=== PATIENT | male | born 1950 | race Caucasian/White ===

== ENCOUNTER 2021-01-11 12:02 | Inpatient (IN) | payer MEDICARE ==
[~2021-01-11] VITALS: Ht 170.2 cm; Wt 79.8 kg
[~2021-01-11 12:02] MED LIST: OMEPRAZOLE20 MG PO; SIMVASTATIN40 MG PO
[2021-01-11] MEDS ORDERED: AMLODIPINE BESYL5 MG PO (12:09)
[2021-01-11] MEDS ORDERED: CEFEPIME HCL 1GM 1 GM in SODIUM CHLORIDE 0.9% 50ML 50 ML IV STA (12:13)
[2021-01-11] MEDS ORDERED: SODIUM CHLORIDE 0.9% 1000ML 1,000 ML IV STA ×2 (12:13)
[2021-01-11] MEDS ORDERED: ACETAMINOPHEN 325 MG TAB ONE (12:34)
[2021-01-11 12:41] LABS: BASOPHILS % 0.2 % (0.0-1.0); EOSINOPHILS % 0.1 % (0.0-6.0); HEMATOCRIT 26.6 % (38.2-49.6); HEMOGLOBIN 8.6 g/dL (14.0-18.0); LYMPHOCYTES # (AUTO) 1.2 (1.0-3.2); LYMPHOCYTES % 7.5 % (18.0-39.1); MEAN CORPUSCULAR HGB CONC 32.3 g/dL (31-35); MEAN CORPUSCULAR VOLUME 92.7 fL (81-99); MONOCYTES # (AUTO) 0.8 (0.2-0.8); MONOCYTES % 5.3 % (4.4-11.3); NEUTROPHILS # (AUTO) 13.1 (2.1-6.9); NEUTROPHILS % 86.2 % (38.7-80.0); PLATELET COUNT 488 x10e3/uL (140-360); RED BLOOD COUNT 2.87 x10e6/uL (4.3-5.7)
[2021-01-11 13:04] LABS: ALBUMIN 2.3 g/dL (3.5-5.0); ALBUMIN/GLOBULIN RATIO 0.4 (0.8-2.0); ANION GAP 17.8 mmol/L (8-16); CALCIUM 8.5 mg/dL (8.4-10.2); CREATININE, SERUM 4.75 mg/dL (0.72-1.25)
[2021-01-11 13:10] LABS: CREATINE KINASE MB 6.9 ng/mL (0-5.0)
[2021-01-11 13:36] LABS: POTASSIUM 2.8 mmol/L (3.5-5.1)
[2021-01-11] MEDS ORDERED: POTASSIUM CHLORIDE 20MEQ/100ML 100 ML IV ONE (13:45)
[2021-01-11] MEDS ORDERED: POTASSIUM CHLORIDE 10MEQ/100ML 200 ML INJ ONE (14:00)
[2021-01-11 14:16] LABS: CLARITY,URINE CLEAR (CLEAR); COLOR,URINE YELLOW (YELLOW)
[2021-01-11 14:17] LABS: KETONES,URINE NEGATIVE (NEGATIVE); LEUKOCYTE ESTERASE ,URINE 2+ (NEGATIVE); NITRITE,URINE NEGATIVE (NEGATIVE); PROTEIN,URINE DIPSTICK 1+ (NEGATIVE); URINE UROBILINOGEN 0.2 mg/dL (0.2 - 1)
[2021-01-11 14:35] LABS: BACTERIA,URINE RARE /HPF; EPITHELIAL CELLS,URINE FEW /LPF; RBC,URINE 21-50 /HPF (0-5); WBC,URINE (MAN) 21-50 /HPF (0-5)
[2021-01-11] MEDS ORDERED: SODIUM CHLORIDE 0.9% 500ML 500 ML IV STA (15:10)
[2021-01-11] MEDS ORDERED: SODIUM CHLORIDE 0.9% 500ML 500 ML ONE (15:21)
[2021-01-11] MEDS: POTASSIUM CHLORIDE 10MEQ EA PO SCH (15:21)
[2021-01-11] MEDS ORDERED: AZOR 10-40 MG1 EACH PO (17:57)
[2021-01-11] MEDS ORDERED: ASPIRIN81 MG PO (17:57)
[2021-01-11 20:00] VITALS: BP_SYST 102; BP_SYST 122; BP_DIAS 73; BP_DIAS 74
[2021-01-11 20:43] VITALS: BP 122/73
[2021-01-12] VITALS (7 sets, daily range): BP systolic 109–126; BP diastolic 58–76
[2021-01-12] MEDS ORDERED: CEFEPIME HCL 1GM 1 GM in SODIUM CHLORIDE 0.9% 50ML 50 ML IV SCH (01:15)
[2021-01-12] MEDS ORDERED: LIDOCAINE 4% PATCH TP PRN (01:15)
[2021-01-12] MEDS ORDERED: DOCUSATE SODIUM 100 MG CAP PO PRN (01:15)
[2021-01-12] MEDS ORDERED: POLYETHYLENE GLYCOL 3350 17 GM PACK PO PRN (01:15)
[2021-01-12] MEDS ORDERED: MELATONIN 5 MG TABLET PO PRN (01:15)
[2021-01-12] MEDS ORDERED: DIPHENHYDRAMINE HCL 25 MG CAP PO PRN (01:15)
[2021-01-12] MEDS ORDERED: SIMETHICONE 80 MG CHEW PO PRN (01:15)
[2021-01-12] MEDS ORDERED: BENZONATATE 100 MG CAP PO PRN (01:15)
[2021-01-12] MEDS: SODIUM CHLORIDE 0.9% 1000ML 1,000 ML IV SCH ×2 (01:31→16:21)
[2021-01-12] MEDS: HYDROCODONE/APAP 5MG-325MG TAB PO PRN ×2 (01:32→14:25)
[2021-01-12] MEDS: CEFEPIME HCL 1GM 1 GM in SODIUM CHLORIDE 0.9% 50ML 50 ML IV SCH ×2 (02:00→14:25)
[2021-01-12] MEDS: PANTOPRAZOLE SOD 40 MG TABEC PO SCH (08:17)
[2021-01-12] MEDS: MORPHINE SULFATE INJ 2 MG/ML SYR IV PRN (08:17)
[2021-01-12] MEDS: POTASSIUM CHLORIDE 20 MEQ TAB CR PO PRN ×2 (08:18→14:25)
[2021-01-12] MEDS: ONDANSETRON HCL INJ 2MG/ML 2ML 2 MG/ML VIAL IV PRN (08:18)
[2021-01-12 14:05] LABS: ALBUMIN 1.8 g/dL (3.5-5.0); ALBUMIN/GLOBULIN RATIO 0.4 (0.8-2.0); ANION GAP 11.9 mmol/L (8-16); CALCIUM 7.7 mg/dL (8.4-10.2); CREATININE, SERUM 4.83 mg/dL (0.72-1.25)
[2021-01-12 14:10] LABS: POTASSIUM 2.9 mmol/L (3.5-5.1)
[2021-01-12] MEDS: ENOXAPARIN SOD INJ 40 MG/0.4 ML SYR SC SCH (16:23)
[2021-01-13] VITALS (7 sets, daily range): BP systolic 128–141; BP diastolic 72–85
[2021-01-13] MEDS: CEFEPIME HCL 1GM 1 GM in SODIUM CHLORIDE 0.9% 50ML 50 ML IV SCH ×2 (01:07→13:35)
[2021-01-13] MEDS: SODIUM CHLORIDE 0.9% 1000ML 1,000 ML IV SCH ×2 (01:07→16:00)
[2021-01-13 07:06] LABS: BASOPHILS % 0.2 % (0.0-1.0); EOSINOPHILS # (AUTO) 0.1 (0.0-0.4); EOSINOPHILS % 0.9 % (0.0-6.0); HEMATOCRIT 24.2 % (38.2-49.6); HEMOGLOBIN 7.5 g/dL (14.0-18.0); LYMPHOCYTES # (AUTO) 1.4 (1.0-3.2); MEAN CORPUSCULAR VOLUME 96.8 fL (81-99); MONOCYTES # (AUTO) 0.8 (0.2-0.8); MONOCYTES % 8.6 % (4.4-11.3); NEUTROPHILS # (AUTO) 6.6 (2.1-6.9); NEUTROPHILS % 73.9 % (38.7-80.0); PLATELET COUNT 397 x10e3/uL (140-360); RED CELL DISTRIBUTION WIDTH 15.1 % (11.7-14.4)
[2021-01-13] MEDS: PANTOPRAZOLE SOD 40 MG TABEC PO SCH (07:12)
[2021-01-13 07:27] LABS: ALBUMIN 1.7 g/dL (3.5-5.0); ALBUMIN/GLOBULIN RATIO 0.4 (0.8-2.0); ANION GAP 14.2 mmol/L (8-16); CALCIUM 7.9 mg/dL (8.4-10.2); CREATININE, SERUM 4.48 mg/dL (0.72-1.25); POTASSIUM 3.2 mmol/L (3.5-5.1)
[2021-01-13] MEDS: POTASSIUM CHLORIDE 10MEQ EA PO SCH (08:03)
[2021-01-13] MEDS: ENOXAPARIN SOD INJ 40 MG/0.4 ML SYR SC SCH (16:39)
[2021-01-14] VITALS (9 sets, daily range): BP systolic 136–166; BP diastolic 73–90
[2021-01-14] MEDS: CEFEPIME HCL 1GM 1 GM in SODIUM CHLORIDE 0.9% 50ML 50 ML IV SCH (00:40)
[2021-01-14] MEDS ORDERED: POTASSIUM CHLORIDE 10MEQ EA PO SCH (09:00)
[2021-01-14] MEDS: PANTOPRAZOLE SOD 40 MG TABEC PO SCH (09:00)
[2021-01-14 10:36] LABS: BASOPHILS % 0.3 % (0.0-1.0); EOSINOPHILS # (AUTO) 0.1 (0.0-0.4); EOSINOPHILS % 1.5 % (0.0-6.0); HEMATOCRIT 25.4 % (38.2-49.6); LYMPHOCYTES # (AUTO) 1.6 (1.0-3.2); LYMPHOCYTES % 16.8 % (18.0-39.1); MEAN CORPUSCULAR HGB CONC 31.5 g/dL (31-35); MEAN CORPUSCULAR VOLUME 95.1 fL (81-99); MONOCYTES # (AUTO) 0.6 (0.2-0.8); MONOCYTES % 6.3 % (4.4-11.3); NEUTROPHILS # (AUTO) 6.9 (2.1-6.9); NEUTROPHILS % 74.7 % (38.7-80.0); PLATELET COUNT 350 x10e3/uL (140-360); RED BLOOD COUNT 2.67 x10e6/uL (4.3-5.7); RED CELL DISTRIBUTION WIDTH 15.4 % (11.7-14.4)
[2021-01-14 11:00] LABS: ANION GAP 12.3 mmol/L (8-16); CALCIUM 7.8 mg/dL (8.4-10.2); CREATININE, SERUM 4.68 mg/dL (0.72-1.25); MAGNESIUM 1.6 MG/DL (1.3-2.1); POTASSIUM 4.3 mmol/L (3.5-5.1)
[2021-01-14] MEDS: CEFTRIAXONE SOD 1 GM in SODIUM CHLORIDE 0.9% 50ML 50 ML IV SCH (11:11)
[2021-01-14] MEDS ORDERED: CLONIDINE HCL 0.1 MG TAB PO PRN (20:00)
[2021-01-14] MEDS: HEPARIN SOD (PORCINE) 5,000 UNIT/ML VIAL SC SCH (21:52)
[2021-01-14] MEDS: SODIUM CHLORIDE 0.9% 1000ML 1,000 ML IV SCH (21:53)
[2021-01-14] MEDS: HYDROCODONE/APAP 5MG-325MG TAB PO PRN (23:55)
[2021-01-15] VITALS (8 sets, daily range): BP systolic 129–165; BP diastolic 75–93
[2021-01-15] MEDS: ONDANSETRON HCL INJ 2MG/ML 2ML 2 MG/ML VIAL IV PRN (04:24)
[2021-01-15] MEDS: MORPHINE SULFATE INJ 2 MG/ML SYR IV PRN (04:24)
[2021-01-15 05:52] LABS: ANION GAP 13.3 mmol/L (8-16); CALCIUM 8.2 mg/dL (8.4-10.2); CREATININE, SERUM 4.55 mg/dL (0.72-1.25); POTASSIUM 4.3 mmol/L (3.5-5.1)
[2021-01-15] MEDS ORDERED: LORAZEPAM 0.5 MG TAB PO ONE (06:40)
[2021-01-15] MEDS: SODIUM CHLORIDE 0.9% 1000ML 1,000 ML IV SCH (08:23)
[2021-01-15] MEDS: HEPARIN SOD (PORCINE) 5,000 UNIT/ML VIAL SC SCH ×2 (08:23→22:01)
[2021-01-15] MEDS: HYDROCODONE/APAP 5MG-325MG TAB PO PRN (08:23)
[2021-01-15] MEDS: CEFTRIAXONE SOD 1 GM in SODIUM CHLORIDE 0.9% 50ML 50 ML IV SCH (10:59)
[2021-01-15] MEDS: LACTATED RINGER'S 1,000 ML INJ SCH (13:06)
[2021-01-15] MEDS: LORAZEPAM 0.5 MG TAB PO PRN (22:36)
[2021-01-15] MEDS: TAMSULOSIN HCL 0.4 MG CAP PO SCH (22:36)
[2021-01-16] VITALS (9 sets, daily range): BP systolic 106–152; BP diastolic 66–120
[2021-01-16] MEDS: LACTATED RINGER'S 1,000 ML INJ SCH ×2 (02:00→13:56)
[2021-01-16] MEDS: LORAZEPAM 0.5 MG TAB PO PRN ×2 (04:40→08:23)
[2021-01-16 05:52] LABS: ANION GAP 14.5 mmol/L (8-16); CALCIUM 8.6 mg/dL (8.4-10.2); CREATININE, SERUM 3.95 mg/dL (0.72-1.25); POTASSIUM 4.5 mmol/L (3.5-5.1)
[2021-01-16] MEDS: HEPARIN SOD (PORCINE) 5,000 UNIT/ML VIAL SC SCH ×2 (09:00→21:06)
[2021-01-16] MEDS: CEFTRIAXONE SOD 1 GM in SODIUM CHLORIDE 0.9% 50ML 50 ML IV SCH (11:00)
[2021-01-16] MEDS: ACETAMINOPHEN 325 MG TAB PO PRN (20:41)
[2021-01-16] MEDS: TAMSULOSIN HCL 0.4 MG CAP PO SCH (20:41)
[2021-01-17] VITALS (9 sets, daily range): BP systolic 134–163; BP diastolic 75–88
[2021-01-17] MEDS: ONDANSETRON HCL INJ 2MG/ML 2ML 2 MG/ML VIAL IV PRN (02:06)
[2021-01-17 05:06] LABS: BASOPHILS % 0.4 % (0.0-1.0); EOSINOPHILS # (AUTO) 0.2 (0.0-0.4); EOSINOPHILS % 2.4 % (0.0-6.0); HEMATOCRIT 25.8 % (38.2-49.6); LYMPHOCYTES # (AUTO) 1.3 (1.0-3.2); LYMPHOCYTES % 16.6 % (18.0-39.1); MEAN CORPUSCULAR HEMOGLOBIN 30.4 pg (28-32); MEAN CORPUSCULAR VOLUME 98.1 fL (81-99); MONOCYTES # (AUTO) 0.7 (0.2-0.8); MONOCYTES % 8.4 % (4.4-11.3); NEUTROPHILS # (AUTO) 5.8 (2.1-6.9); NEUTROPHILS % 71.6 % (38.7-80.0); PLATELET COUNT 425 x10e3/uL (140-360); RED BLOOD COUNT 2.63 x10e6/uL (4.3-5.7); RED CELL DISTRIBUTION WIDTH 15.8 % (11.7-14.4)
[2021-01-17 05:18] LABS: ANION GAP 11.7 mmol/L (8-16); CALCIUM 8.5 mg/dL (8.4-10.2); CREATININE, SERUM 3.31 mg/dL (0.72-1.25); POTASSIUM 3.7 mmol/L (3.5-5.1)
[2021-01-17] MEDS: LACTATED RINGER'S 1,000 ML INJ SCH ×2 (05:30→11:03)
[2021-01-17 05:49] LABS: MAGNESIUM 1.6 MG/DL (1.3-2.1)
[2021-01-17 06:09] LABS: THYROID STIMULATING HORMONE 1.098 uIU/mL (0.350-4.940)
[2021-01-17] MEDS: HEPARIN SOD (PORCINE) 5,000 UNIT/ML VIAL SC SCH ×2 (09:00→21:24)
[2021-01-17] MEDS: CEFTRIAXONE SOD 1 GM in SODIUM CHLORIDE 0.9% 50ML 50 ML IV SCH (11:00)
[2021-01-17] MEDS ORDERED: MAGNESIUM SULF 1GRAM/DEXTROSE 100 ML IV ONE (11:15)
[2021-01-17] MEDS: ACETAMINOPHEN 325 MG TAB PO PRN ×2 (14:13→20:12)
[2021-01-17] MEDS: TAMSULOSIN HCL 0.4 MG CAP PO SCH (20:12)
[2021-01-18] MEDS: LACTATED RINGER'S 1,000 ML INJ SCH ×2 (02:47→20:53)
[2021-01-18 03:51] VITALS: BP 113/66
[2021-01-18 05:28] LABS: ANION GAP 13.8 mmol/L (8-16); CALCIUM 8.7 mg/dL (8.4-10.2); CREATININE, SERUM 2.86 mg/dL (0.72-1.25); POTASSIUM 3.8 mmol/L (3.5-5.1)
[2021-01-18 06:28] LABS: FERRITIN 680.47 ng/mL (21.81-274.66)
[2021-01-18 08:05] VITALS: BP 113/66
[2021-01-18 08:52] VITALS: BP 127/60
[2021-01-18] MEDS: HEPARIN SOD (PORCINE) 5,000 UNIT/ML VIAL SC SCH ×2 (09:00→21:00)
[2021-01-18] MEDS: CEFTRIAXONE SOD 1 GM in SODIUM CHLORIDE 0.9% 50ML 50 ML IV SCH (10:15)
[2021-01-18] MEDS ORDERED: LACTULOSE SYRUP 20 GM/30 ML UDC PO ONE (11:15)
[2021-01-18 16:38] VITALS: BP 162/61
[2021-01-18] MEDS ORDERED: PROPOFOL IV EMULSION 10 MG/ML 20 ML VIAL ONE (17:38)
[2021-01-18 20:00] VITALS: BP 142/85
[2021-01-18] MEDS: TAMSULOSIN HCL 0.4 MG CAP PO SCH (20:53)
[2021-01-18 21:49] VITALS: BP 142/85
[2021-01-19] VITALS (8 sets, daily range): BP systolic 148–169; BP diastolic 74–90
[2021-01-19 05:28] LABS: ANION GAP 13.9 mmol/L (8-16); CALCIUM 8.6 mg/dL (8.4-10.2); CREATININE, SERUM 2.52 mg/dL (0.72-1.25); POTASSIUM 3.9 mmol/L (3.5-5.1)
[2021-01-19] MEDS: HEPARIN SOD (PORCINE) 5,000 UNIT/ML VIAL SC SCH ×2 (09:16→21:00)
[2021-01-19] MEDS: CEFTRIAXONE SOD 1 GM in SODIUM CHLORIDE 0.9% 50ML 50 ML IV SCH (10:04)
[2021-01-19] MEDS: CARVEDILOL 3.125 MG TAB PO SCH ×2 (13:40→18:40)
[2021-01-19] MEDS: CALCIUM CARBONATE 500 MG CHEWABLE TABS PO PRN (16:08)
[2021-01-19] MEDS: AMLODIPINE BESYLATE 5 MG TAB PO SCH (19:15)
[2021-01-19] MEDS: TAMSULOSIN HCL 0.4 MG CAP PO SCH (23:30)
[2021-01-19] MEDS: LACTATED RINGER'S 1,000 ML INJ SCH (23:30)
[2021-01-20] VITALS (8 sets, daily range): BP systolic 121–168; BP diastolic 75–92
[2021-01-20] MEDS: CALCIUM CARBONATE 500 MG CHEWABLE TABS PO PRN (00:08)
[2021-01-20 06:35] LABS: ANION GAP 11.9 mmol/L (8-16); CALCIUM 8.3 mg/dL (8.4-10.2); CREATININE, SERUM 2.26 mg/dL (0.72-1.25); POTASSIUM 3.9 mmol/L (3.5-5.1)
[2021-01-20] MEDS: HEPARIN SOD (PORCINE) 5,000 UNIT/ML VIAL SC SCH ×2 (08:35→21:38)
[2021-01-20] MEDS: AMLODIPINE BESYLATE 5 MG TAB PO SCH (09:00)
[2021-01-20] MEDS: CARVEDILOL 3.125 MG TAB PO SCH ×2 (09:00→16:47)
[2021-01-20] MEDS: CEFTRIAXONE SOD 1 GM in SODIUM CHLORIDE 0.9% 50ML 50 ML IV SCH (09:43)
[2021-01-20] MEDS: TAMSULOSIN HCL 0.4 MG CAP PO SCH (21:37)
[2021-01-21] VITALS: BP 141/86
[2021-01-21 04:29] VITALS: BP 136/94
[2021-01-21 06:00] LABS: ANION GAP 14.9 mmol/L (8-16); CALCIUM 8.6 mg/dL (8.4-10.2); CREATININE, SERUM 2.18 mg/dL (0.72-1.25); POTASSIUM 3.9 mmol/L (3.5-5.1)
[2021-01-21] MEDS: LACTATED RINGER'S 1,000 ML INJ SCH (06:26)
[2021-01-21 08:00] VITALS: BP 144/81
[2021-01-21] MEDS: AMLODIPINE BESYLATE 5 MG TAB PO SCH (09:22)
[2021-01-21] MEDS: CARVEDILOL 3.125 MG TAB PO SCH (09:22)
[2021-01-21] MEDS: CEFTRIAXONE SOD 1 GM in SODIUM CHLORIDE 0.9% 50ML 50 ML IV SCH (09:23)
[2021-01-21] MEDS: HEPARIN SOD (PORCINE) 5,000 UNIT/ML VIAL SC SCH (09:29)
[2021-01-21 09:46] VITALS: BP 144/81
[2021-01-21 12:00] VITALS: BP 108/72
[2021-01-21 16:00] VITALS: BP 126/73
== END 2021-01-21 16:22 | DRG 871 ==
LOC: ER 12:11 → ERHOLD 13:58 → ER 17:32 → MED/SURG2 18:43
PROVIDERS: ADMIT Internal Medicine; ATTEND Internal Medicine
PROC: 0DB78ZX Excision of Stomach, Pylorus, Via Natural or Artificial Opening Endoscopic, Diagnostic (ICD-10-PCS; 2021-01-18)
PROC: 0DB68ZX Excision of Stomach, Via Natural or Artificial Opening Endoscopic, Diagnostic (ICD-10-PCS; 2021-01-18)
PROC: 0D758ZZ Dilation of Esophagus, Via Natural or Artificial Opening Endoscopic (ICD-10-PCS; principal; 2021-01-18 13:30)
PROC: 0DB98ZX Excision of Duodenum, Via Natural or Artificial Opening Endoscopic, Diagnostic (ICD-10-PCS; 2021-01-18 13:30)
DX: A41.51 Sepsis due to Escherichia coli [E. coli] (principal); G93.41 Metabolic encephalopathy; N17.0 Acute kidney failure with tubular necrosis; R65.21 Severe sepsis with septic shock; N39.0 Urinary tract infection, site not specified; N10 Acute pyelonephritis; I10 Essential (primary) hypertension; K21.9 Gastro-esophageal reflux disease without esophagitis; E78.5 Hyperlipidemia, unspecified; Z87.440 Personal history of urinary (tract) infections; Z83.3 Family history of diabetes mellitus; Z82.49 Family history of ischemic heart disease and other diseases of the circulatory system; B96.20 Unspecified Escherichia coli [E. coli] as the cause of diseases classified elsewhere; N18.9 Chronic kidney disease, unspecified; R41.0 Disorientation, unspecified; T42.4X5A Adverse effect of benzodiazepines, initial encounter; Y92.230 Patient room in hospital as the place of occurrence of the external cause; R13.10 Dysphagia, unspecified; N40.0 Benign prostatic hyperplasia without lower urinary tract symptoms; K22.2 Esophageal obstruction; K20.90 Esophagitis, unspecified without bleeding; K29.70 Gastritis, unspecified, without bleeding; K44.9 Diaphragmatic hernia without obstruction or gangrene; K31.7 Polyp of stomach and duodenum; K63.89 Other specified diseases of intestine; Z20.822 Contact with and (suspected) exposure to COVID-19
CPT/HCPCS: 36415; 43239; 43450; 70551; 71045; 71046; 74230; 76770; 80048; 80053; 81001; 82550; 82553; 82607; 82728; 82746; 83540; 83605; 83690; 83735; 84443; 84466; 84484; 85025; 85045; 87040; 87071; 87086; 87186; 87205; 88305; 88312; 96361; 97139; 99251; 99284; J0692; J0696; J1644; J1650; J2270; J2405; J3475; J3480; J7030; J7040; J7121; U0002

== ENCOUNTER 2024-08-10 14:56 | Emergency (ER) | payer MEDICARE ==
[~2024-08-10] VITALS: Ht 170.2 cm; Wt 79.8 kg
[~2024-08-10 14:56] MED LIST changes: +AMLODIPINE BESYL5 MG PO; +ASPIRIN81 MG PO; +AZOR 10-40 MG1 EACH PO
[2024-08-10 15:00] VITALS: TEMP 98.5
[2024-08-10] MEDS ORDERED: SODIUM CHLORIDE 0.9% 1000ML 1,000 ML IV STA (15:29)
[2024-08-10 15:42] LABS: BASOPHILS % 0.5 % (0.0-1.0); EOSINOPHILS # (AUTO) 0.5 (0.0-0.4); EOSINOPHILS % 6.4 % (0.0-6.0); HEMOGLOBIN 11.3 g/dL (14.0-18.0); LYMPHOCYTES # (AUTO) 2.1 (1.0-3.2); LYMPHOCYTES % 26.6 % (18.0-39.1); MEAN CORPUSCULAR HEMOGLOBIN 32.8 pg (28-32); MEAN CORPUSCULAR HGB CONC 32.3 g/dL (31-35); MEAN CORPUSCULAR VOLUME 101.4 fL (81-99); MONOCYTES # (AUTO) 0.8 (0.2-0.8); MONOCYTES % 9.8 % (4.4-11.3); NEUTROPHILS # (AUTO) 4.4 (2.1-6.9); NEUTROPHILS % 56.3 % (38.7-80.0); PLATELET COUNT 306 x10e3/uL (140-360); RED BLOOD COUNT 3.45 x10e6/uL (4.3-5.7); RED CELL DISTRIBUTION WIDTH 13.3 % (11.7-14.4); WHITE BLOOD COUNT 7.77 x10e3/uL (4.8-10.8)
[2024-08-10 15:46] LABS: PROTHROMBIN TIME 13.7 seconds (11.9-14.5)
[2024-08-10 15:47] LABS: PARTIAL THROMBOPLASTIN TIME 30.6 seconds (23.8-35.5)
[2024-08-10 15:54] LABS: ALBUMIN 3.2 g/dL (3.5-5.0); ALBUMIN/GLOBULIN RATIO 0.9 (0.8-2.0); ANION GAP 13.6 mmol/L (8-16); BILIRUBIN,TOTAL 0.2 mg/dL (0.2-1.2); CALCIUM 9.1 mg/dL (8.4-10.2); CREATININE, SERUM 3.11 mg/dL (0.72-1.25); MAGNESIUM 1.8 MG/DL (1.3-2.1); POTASSIUM 3.6 mmol/L (3.5-5.1); TOTAL PROTEIN 6.7 g/dL (6.5-8.1)
[2024-08-10 16:13] LABS: THYROID STIMULATING HORMONE 0.862 uIU/mL (0.350-4.940); TROPONIN I 0.012 ng/mL (0-0.300)
[2024-08-10 17:31] VITALS: PULSE 76; RESP 18; O2SAT 100
[2024-08-10 17:36] LABS: COLOR,URINE YELLOW (YELLOW)
[2024-08-10 17:37] LABS: BILIRUBIN,URINE NEGATIVE (NEGATIVE); CLARITY,URINE CLOUDY (CLEAR); GLUCOSE, URINE NEGATIVE (NEGATIVE); KETONES,URINE NEGATIVE (NEGATIVE); LEUKOCYTE ESTERASE ,URINE LARGE (NEGATIVE); NITRITE,URINE NEGATIVE (NEGATIVE); PH,URINE 6 (5 - 7); PROTEIN,URINE DIPSTICK NEGATIVE (NEGATIVE); URINE UROBILINOGEN 0.2 mg/dL (0.2 - 1)
[2024-08-10 17:59] LABS: WBC,URINE (MAN) >50 /HPF (0-5)
[2024-08-10 18:00] LABS: BACTERIA,URINE MANY /HPF; EPITHELIAL CELLS,URINE FEW /LPF
[2024-08-10] MEDS ORDERED: CEFDINIR300 MG PO (18:17)
[2024-08-10 18:35] VITALS: BP 172/79; TEMP 98.2
== END 2024-08-10 18:35 | disposition home or self-care (01) ==
LOC: ER 15:29
DX: N39.0 Urinary tract infection, site not specified (principal); I12.9 Hypertensive chronic kidney disease with stage 1 through stage 4 chronic kidney disease, or unspecified chronic kidney disease; N18.4 Chronic kidney disease, stage 4 (severe); E78.00 Pure hypercholesterolemia, unspecified; K21.9 Gastro-esophageal reflux disease without esophagitis; R94.31 Abnormal electrocardiogram [ECG] [EKG]
CPT/HCPCS: 36415; 71045; 80053; 81001; 82550; 83735; 83880; 84443; 84484; 85025; 85610; 85730; 87086; 87186; 93005; 99283